=== PATIENT | female | born 1970 | race Hispanic/Latino ===

== ENCOUNTER 2017-05-25 08:31 | Emergency (ER) | payer SELFPAY | END 2017-05-25 09:38 | disposition home or self-care (01) | LOC: ERS 08:31 | DX: K02.9 Dental caries, unspecified (principal); E78.5 Hyperlipidemia, unspecified; E11.9 Type 2 diabetes mellitus without complications; F31.9 Bipolar disorder, unspecified; Z79.4 Long term (current) use of insulin; Z79.899 Other long term (current) drug therapy | CPT/HCPCS: 99282 ==

== ENCOUNTER 2017-06-19 13:04 | Emergency (ER) | payer SELFPAY | END 2017-06-19 14:40 | disposition home or self-care (01) | LOC: ERS 13:04 | DX: K04.7 Periapical abscess without sinus (principal); K02.9 Dental caries, unspecified; E11.9 Type 2 diabetes mellitus without complications; E78.5 Hyperlipidemia, unspecified; I10 Essential (primary) hypertension; F31.9 Bipolar disorder, unspecified; Z79.4 Long term (current) use of insulin; Z79.2 Long term (current) use of antibiotics; Z79.899 Other long term (current) drug therapy | CPT/HCPCS: 99283 ==

== ENCOUNTER 2018-10-03 13:33 | Observation (INO) | payer MEDICAID, SELFPAY ==
[2018-10-03 14:26] LABS: #Basophils 0.1 thou/uL (0.0-0.2); #Eosinphils 0.3 thou/uL (0.0-0.7); #Lymphocytes 2.4 thou/uL (1.20-3.40); #Monocytes 0.4 thou/uL (0.11-0.59); #Neutrophils 4.4 thou/uL (1.40-6.50); %Basophils 1.1 % (0.0-1.0); %Eosinophils 4.5 % (0.0-10.0); %Lymphocytes 31.1 % (21.0-51.0); %Monocytes 5.4 % (0.0-10.0); Hemoglobin 13.9 g/dL (12.0-16.0); Mean Corpuscular HGB CONC 32.2 g/dL (32.0-36.0); Mean Corpuscular Hemoglobin 28.9 pg (27.0-31.0); Mean Corpuscular Volume 89.8 fL (78.0-98.0); Mean Platelet Volume 6.6 fL (7.4-10.4); Platelet Count 421 thou/uL (130-400); RBC Distribution Width 12.7 % (11.5-14.5); Red Blood Cell (RBC) Count 4.82 mill/uL (4.20-5.40); White Blood Cell (WBC) Count 7.6 thou/uL (4.8-10.8)
[2018-10-03 14:52] LABS: Acetaminophen Less than 6.0 mcg/mL (10.0-30.0); Alcohol Less than 10 mg/dL (Less than 10); Salicylate Less than 8.0 mg/dL (15.0-30.0)
[2018-10-03 14:53] LABS: ALT (SGPT) 26 U/L (8-55); AST (SGOT) 21 U/L (5-34); Albumin 4.4 g/dL (3.5-5.0); Alkaline Phosphatase 58 U/L (40-150); Anion Gap 13 mmol/L (10-20); BUN (Urea Nitrogen) 8 mg/dL (7.0-18.7); Bilirubin, Total 0.2 mg/dL (0.2-1.2); CK (CPK) 53 U/L (29-168); Calc. Creatinine Clearance 0 mL/min (70-130); Calcium 10.5 mg/dL (7.8-10.44); Carbon Dioxide 25 mmol/L (22-29); Chloride 103 mmol/L (98-107); Estimated GFR-MDRD 47; Globulin 2.8 g/dL (2.4-3.5); Glucose 187 mg/dL (70-105); Protein, Total 7.2 g/dL (6.0-8.3); Sodium 137 mmol/L (136-145)
[2018-10-03 15:28] LABS: Bilirubin Negative (Negative); Blood, Urine Large (Negative); Clarity CLOUDY (Clear); Glucose, Urine (Dipstick) Negative (Negative); Leukocyte Trace (Negative); Nitrite Negative (Negative); Protein, Urine (Dipstick) 30 mg/dL (Neg-Trace); Specific Gravity, Urine 1.015 (1.002-1.036); Urobilinogen 0.2 mg/dL (0.2-1.0)
[2018-10-03 15:31] LABS: Bacteria/HPF None Seen HPF (None Seen); Hyaline Casts/LPF 0-3 HYALINE CAST LPF (0-3 Hyaline); Pathc Cast-AUWi Flag 0.33 (0-2.49); RBC/HPF GREATER THAN 50-TNTC HPF (0-3); Squamous Epithelial 0-3 HPF (0-3); WBC/HPF 0-3 HPF (0-3)
[2018-10-03 15:37] LABS: Amphetamine Not Detected (NotDetected); Barbiturates Screen Not Detected (NotDetected); Benzodiazepine Screen Not Detected (NotDetected); Cocaine Metabolite Screen Not Detected (NotDetected); Medtox Control Line Valid? VALID (VALID); Medtox Reader # READER 4; Methadone Not Detected (NotDetected); Methamphetamine Not Detected (NotDetected); Opiate Screen Not Detected (NotDetected); Oxycodone Screen Not Detected (NotDetected); Phencyclidine (PCP) Not Detected (NotDetected); THC/Cannabinoid Screen Not Detected (NotDetected); Tricyclic Screen Detected (NotDetected)
[2018-10-03] MEDS ORDERED: Nitroglycerin 2% Ointment 1 INCH/1 GM Packet ONE (16:42)
[2018-10-03] MEDS ORDERED: Ondansetron PF 4 MG/2 ML Vial IVP PRN (17:52)
[2018-10-03] MEDS ORDERED: Acetaminophen 325 MG TAB PO PRN (17:52)
[2018-10-03 21:24] VITALS: BMI 44.7
--- NOTE | 2018-10-04 01:48 | HP ---
CHIEF COMPLAINT: Accidental medication overdose. HISTORY OF PRESENT ILLNESS: The patient is a pleasant 48-year-old female with past medical history significant for type 2 diabetes mellitus diagnosed 10 years ago, hypertension, hyperlipidemia, and anxiety and depression, who presented to the ER this afternoon after accidentally taking a double dose of her morning medications. The patient states that she woke up very early this morning and did indeed take her Tuesday a.m. medications that were in her pill case. Sometime later in the morning, her son was taking his morning medications, and she looked in her pill case, and saw that the morning Tuesday medications had not been taken and she just assumed that it was Tuesday morning and took them again. She called her primary care physician, who told her to present to the ER for further workup and treatment. Essentially, the patient doubled her morning dose of metformin, glyburide, Wellbutrin, Cymbalta, metoprolol. Essentially, she took 1000 mg of metformin, 10 mg of glyburide, 900 mg of Wellbutrin, 240 mg of Cymbalta, and 100 mg of metoprolol. On arrival to the ER, initial workup shows hemoglobin of 13.9, hematocrit 43.3, platelet count is 421. Sodium 137, potassium 4.0, chloride 103, BUN 8, creatinine 1.22. Glucose has been 187, 273, and 117 respectively. Her liver function tests are within normal limits. Her UA does show positive for blood, but is negative for leukocyte esterase or bacteria. Her EKG shows sinus rhythm with a first-degree AV block, ventricular rate of 66 beats per minute, and ST depression and T-wave inversions in the lateral leads. Overall, the patient does not have any specific physical complaints. She denies chest pain or shortness of breath. She denies dizziness. She denies confusion. Poison Control was called and did recommend admission for 24-hour observation, with q.1 hour Accu-Cheks. ALLERGIES: TRAZODONE. HOME MEDICATIONS: 1. Metformin 500 mg b.i.d. 2. Glyburide 5 mg b.i.d. 3. Wellbutrin 450 mg q.a.m. The patient actually takes a 300 mg pill and 150 mg pill for a total of 450 mg. 4. Cymbalta 60 mg two pills p.o. q.a.m. 5. Metoprolol 50 mg b.i.d. 6. Levemir 35 units b.i.d. 7. Pravastatin 40 mg q.h.s. 8. Seroquel 250 mg q.h.s. 9. [place] 900 mg QHS PAST MEDICAL AND SURGICAL HISTORY: 1. Type 2 diabetes mellitus. 2. Hypertension. 3. Hyperlipidemia. 4. Anxiety and depression. 5. History of carpal tunnel release. 6. D and C in 2001. 7. History of laparoscopic endometriosis procedure. FAMILY HISTORY: Positive for TIA and NV in her father. Mother has hypertension and diabetes. SOCIAL HISTORY: The patient does not smoke. She does not use alcohol. She has no history of illicit drug use. She works in [employer]. She has 3 children, ages of 23, 20, and 19. CODE STATUS: The patient is a full code and this was discussed with the patient at length. REVIEW OF SYSTEMS: CONSTITUTIONAL: Negative for fever, chills, and weight loss. HEENT: Eyes, negative for discharge, injury, or pain. ENT, negative for cough, nasal drainage, or ear pain. NECK: Negative for swelling or pain. CARDIOVASCULAR: Negative for chest pain, shortness of breath, palpitations, or edema. RESPIRATORY: Negative for shortness of breath, cough, wheezing, and pleuritic chest pain. ABDOMEN/GI: Negative for abdominal pain, nausea, vomiting, diarrhea, or constipation. BACK: Negative for injury or pain. SKIN: Negative for any rash or discoloration. NEUROLOGIC: Negative for any altered mental status or dizziness. PHYSICAL EXAMINATION: CONSTITUTIONAL: The patient is awake, alert, and nontoxic appearing. She is conversive, alert and oriented x3. HEAD AND FACE: Normocephalic, atraumatic. Eyes, extraocular movements intact. Normal conjunctiva. ENT, nares patent. Mucous membranes moist. RESPIRATORY: Regular respiratory rate and pattern, clear to auscultation bilaterally. No rales, rhonchi, or wheezes noted. ABDOMEN/GI: Soft, nontender. Positive bowel sounds. Obese. No guarding or rebound. SKIN: Warm, dry, normal turgor. No rashes or lesions. CARDIOVASCULAR: S1 and S2. Regular rate and rhythm. No appreciable murmurs, rubs, or gallops. NEUROLOGIC: Nonfocal. Cranial nerves 2 through 12 intact. LABORATORY DATA: Hemoglobin 13.9, hematocrit 43.3, MCV 89.8, MCH 28.9, platelet count is 421. Sodium 131, creatinine 1.22, estimated GFR 47, glucose 187, calcium 10.5, AST 21, ALT 26, alkaline phosphatase 58. EKG as outlined in the HPI shows sinus rhythm with evidence of lateral ischemia. ASSESSMENT: 1. Accidental overdose of Cymbalta, Wellbutrin, glyburide, metformin, and beta brii, the patient is currently asymptomatic and hemodynamically stable. 2. Type 2 diabetes mellitus, diagnosed 10 years ago. 3. Hypertension. 4. Hyperlipidemia. 5. Anxiety and depression. 6. Abnormal EKG with lateral ischemia. 7. Elevated creatinine. PLAN: Per Poison Control, admit the patient for 24-hour observation. We will perform q.1 hour Accu-Cheks and monitor her blood glucose closely. We will perform EKG q.4 hours to monitor for prolonged QT in the setting of multiple medications without particular side effect. We will repeat her labs in the morning. Continue telemetry monitoring regarding her abnormal EKG. The patient does have numerous risk factors for coronary artery disease and may benefit from outpatient cardiology workup and stress test. Care discussed with Dr. Penny who agrees with the plan. Job ID: [id number] MTDD
[2018-10-04 05:51] LABS: ALT (SGPT) 20 U/L (8-55); AST (SGOT) 15 U/L (5-34); Albumin 3.7 g/dL (3.5-5.0); Alkaline Phosphatase 46 U/L (40-150); Anion Gap 12 mmol/L (10-20); BUN (Urea Nitrogen) 9 mg/dL (7.0-18.7); Bilirubin, Total 0.4 mg/dL (0.2-1.2); Calc. Creatinine Clearance 140 mL/min (70-130); Calcium 9.5 mg/dL (7.8-10.44); Carbon Dioxide 23 mmol/L (22-29); Chloride 106 mmol/L (98-107); Estimated GFR-MDRD 64; Globulin 2.1 g/dL (2.4-3.5); Glucose 114 mg/dL (70-105); Potassium 3.5 mmol/L (3.5-5.1); Protein, Total 5.8 g/dL (6.0-8.3); Sodium 137 mmol/L (136-145)
[2018-10-04 12:14] VITALS: BP 111/79; TEMP 98
--- NOTE | 2018-10-04 17:13 | DIS ---
DATE OF ADMISSION: 10/03/2018 DATE OF DISCHARGE: 10/04/2018 ALLERGIES: TRAZODONE. CHIEF COMPLAINT: Accidental overdose. FINAL DIAGNOSES: 1. Accidental overdose of Cymbalta, Wellbutrin, glyburide, metformin, and beta-brii, resolved. 2. Type 2 diabetes mellitus. 3. Hypertension. 4. Hyperlipidemia. 5. Anxiety and depression. 6. Abnormal EKG with lateral ischemia. PROCEDURES PERFORMED: None. LABORATORY RESULTS: Sodium 137, potassium 3.5, chloride 106, BUN 9, creatinine 0.94. Serial Accu-Chek glucose 117, 120, 114, and 120. Liver function tests within normal limits. CONSULTANTS: None. HOSPITAL COURSE: The patient is a pleasant 48-year-old female with past medical historysignificant for type 2 diabetes, hypertension, hyperlipidemia, anxiety, and depression, who presented to the ER yesterday afternoon after accidentally taking a double dose of her morning medications. The patient states that she had woken up extremely early yesterday morning and took her morning medications as usual, however, sometime later in the morning, she was in the kitchen with her son who was taking his medications, lifting her pill box, and again took her next day's dose of morning medications. Essentially, she took a 1000 mg of metformin 10 mg of glyburide, 900 mg of Wellbutrin, 240 mg of Cymbalta, and 100 mg of metoprolol. She called her primary care doctor who advised her to go to the ER for further workup and treatment. On arrival to the ER, the patient was awake and alert. She denied any dizziness or lethargy. Poison Control was called, who recommended admission for 24-hour observation. The patient was admitted for hourly Accu-Cheks. Her blood sugar has remained stable. Serial EKGs did show QTc within normal limits. Telemetry monitoring overnight showed no bradycardia, heart rate remained in the 60s throughout the night. This morning, the patient feels well. She denies any chest pain, shortness of breath, abdominal pain or discomfort, nausea or vomiting. She has ambulated around the room without issue. She has no complaints to me this morning. PHYSICAL EXAMINATION: VITAL SIGNS: Blood pressure 111/79, temperature 98, pulse 64, respirations 16, and O2 saturation 95% on room air. GENERAL: The patient is a moderately obese female, in no acute distress, awake and alert. HEENT: Atraumatic and normocephalic. Eye movements intact. Mucous membranes moist. NECK: Supple. RESPIRATORY: Regular respiratory rate and pattern, clear to auscultation bilaterally. No rhonchi, wheeze, or rales. CARDIOVASCULAR: Normal S1 and S2. No appreciable murmurs, rubs, or gallops. GI: Soft, nontender. Positive bowel sounds. PERIPHERAL VASCULAR: No lower extremity edema. +2 DP pulses bilaterally. NEUROLOGIC: Cranial nerves 2 through 12 grossly intact. No focal deficits. SKIN: Normal, dry, no rashes. CONDITION AT DISCHARGE: Stable. DISCHARGE MEDICATIONS: 1. Bupropion 300 mg tablet extended release 450 mg p.o. q.a.m. 2. Cymbalta 60 mg capsule, 120 mg p.o. daily. 3. Glyburide 5 mg tablet 1 tab p.o. b.i.d. 4. [place] 300 mg tablet, 900 mg p.o. at bedtime. 5. Metformin 500 mg tablet 1 tab p.o. b.i.d. 6. Metoprolol tartrate 50 mg tab 1 tab p.o. b.i.d. 7. Pravastatin 40 mg tab 1 tab p.o. at bedtime. 8. Quetiapine 200 mg tab 1 tab p.o. at bedtime. DISCHARGE DISPOSITION: Home. PLAN: I have advised the patient that she can restart taking her morning medications tomorrow given the half-life of Wellbutrin at 21 hours. She may take her evening medications as scheduled. The patient was noted to have lateral ischemia on her EKGs. Given her risk factors of type 2 diabetes mellitus, hypertension, hyperlipidemia, and family history of coronary artery disease, I have advised the patient to follow up as an outpatient with Cardiology for possible nuclear stress test. As mentioned, the patient has remained hemodynamically stable. She feels well, and we have counseled her at length on the importance of safe medication administration. Plan discussed with Dr. Penny and he agrees. Job ID: [id number]
--- NOTE | 2018-10-04 18:39 | EKG ---
Test Reason : ROUTINE Blood Pressure : / mmHG Vent. Rate : 064 BPM Atrial Rate : 064 BPM P-R Int : 204 ms QRS Dur : 092 ms QT Int : 416 ms P-R-T Axes : 041 -21 114 degrees QTc Int : 429 ms Normal sinus rhythm T wave abnormality, consider lateral ischemia Abnormal ECG When compared with ECG of 03-OCT-2018 14:26, (Unconfirmed) T wave inversion less evident in Anterolateral leads Confirmed by DR. Celia DUKE ([id number]) on 10/04/2018 6:38:57 PM Referred By: Confirmed By:DR. Celia DUKE
--- NOTE | 2018-10-04 18:44 | EKG ---
Test Reason : Blood Pressure : / mmHG Vent. Rate : 061 BPM Atrial Rate : 061 BPM P-R Int : 206 ms QRS Dur : 096 ms QT Int : 446 ms P-R-T Axes : 045 -05 130 degrees QTc Int : 448 ms Normal sinus rhythm T wave abnormality, consider anterolateral ischemia Abnormal ECG When compared with ECG of 03-OCT-2018 14:26, (Unconfirmed) No significant change was found Confirmed by DR. Celia DUKE ([id number]) on 10/04/2018 6:43:52 PM Referred By: SERINA Confirmed By:DR. Celia DUKE
--- NOTE | 2018-10-07 12:02 | EKG ---
Test Reason : OVERDOSE Blood Pressure : / mmHG Vent. Rate : 066 BPM Atrial Rate : 066 BPM P-R Int : 210 ms QRS Dur : 092 ms QT Int : 404 ms P-R-T Axes : 048 -19 107 degrees QTc Int : 423 ms Sinus rhythm with 1st degree A-V block T wave abnormality, consider lateral ischemia Abnormal ECG Confirmed by MAGED HOWARD DO ([id number]), acquisitions editor SHAILA FUNEZ ([id number]) on 10/07/2018 12:02:32 PM Referred By: LEE Confirmed By:MAGED HOWARD DO
== END 2018-10-04 14:40 | disposition home or self-care (01) ==
LOC: ERS 13:33 → ERHOLD 15:30 → 2SW 20:12
PROVIDERS: ADMIT Internal Medicine; ATTEND Internal Medicine
DX: T43.211A Poisoning by selective serotonin and norepinephrine reuptake inhibitors, accidental (unintentional), initial encounter (principal); T43.291A Poisoning by other antidepressants, accidental (unintentional), initial encounter; T38.3X1A Poisoning by insulin and oral hypoglycemic [antidiabetic] drugs, accidental (unintentional), initial encounter; T44.7X1A Poisoning by beta-adrenoreceptor antagonists, accidental (unintentional), initial encounter; I10 Essential (primary) hypertension; E11.9 Type 2 diabetes mellitus without complications; F41.9 Anxiety disorder, unspecified; F32.9 Major depressive disorder, single episode, unspecified; R94.31 Abnormal electrocardiogram [ECG] [EKG]; E78.5 Hyperlipidemia, unspecified; Z88.8 Allergy status to other drugs, medicaments and biological substances; Z79.84 Long term (current) use of oral hypoglycemic drugs; Z79.4 Long term (current) use of insulin; Z79.899 Other long term (current) drug therapy; Z98.890 Other specified postprocedural states
CPT/HCPCS: 36415; 36416; 80053; 80306; 80307; 81003; 81015; 82550; 85025; 93005; 93010; G0378

== ENCOUNTER 2021-07-23 17:10 | Emergency (ER) | payer SELFPAY ==
[2021-07-23 18:17] LABS: #Basophils 0.1 thou/uL (0.0-0.2); #Eosinphils 0.4 thou/uL (0.0-0.7); #Lymphocytes 2.7 thou/uL (1.20-3.40); #Monocytes 0.5 thou/uL (0.11-0.59); #Neutrophils 5.6 thou/uL (1.40-6.50); %Basophils 0.8 % (0.0-1.0); %Eosinophils 4.5 % (0.0-10.0); %Lymphocytes 28.8 % (21.0-51.0); %Monocytes 5.6 % (0.0-10.0); %Neutrophils 60.3 % (42.0-75.0); Hemoglobin 14.5 g/dL (12.0-16.0); Mean Corpuscular HGB CONC 33.6 g/dL (32.0-36.0); Mean Corpuscular Hemoglobin 30.8 pg (27.0-31.0); Mean Corpuscular Volume 91.7 fL (78.0-98.0); Mean Platelet Volume 6.6 fL (7.4-10.4); Platelet Count 472 thou/uL (130-400); RBC Distribution Width 12.5 % (11.5-14.5); Red Blood Cell (RBC) Count 4.69 mill/uL (4.20-5.40); White Blood Cell (WBC) Count 9.3 thou/uL (4.8-10.8)
[2021-07-23 18:27] LABS: BHCG - Serum Negative (NEGATIVE); Pregs Control Background? CLEAR/WHITE (CLR/WHITE); Pregs Control Bar Appear? YES (CONTROL BAR)
[2021-07-23 18:30] LABS: Acetaminophen Less than 6.0 mcg/mL (10.0-30.0); Alcohol Less than 10 mg/dL (Less than 10); Salicylate Less than 8.0 mg/dL (15.0-30.0)
[2021-07-23 18:31] LABS: ALT (SGPT) 12 U/L (8-55); AST (SGOT) 12 U/L (5-34); Albumin 3.8 g/dL (3.5-5.0); Alkaline Phosphatase 55 U/L (40-110); Anion Gap 12 mmol/L (10-20); BUN (Urea Nitrogen) 13 mg/dL (7.0-18.7); Bilirubin, Total 0.3 mg/dL (0.2-1.2); Calc. Creatinine Clearance 0 mL/min (70-130); Calcium 10.1 mg/dL (7.8-10.44); Carbon Dioxide 24 mmol/L (22-29); Chloride 101 mmol/L (98-107); Globulin 3.1 g/dL (2.4-3.5); Glucose 391 mg/dL (70-105); Potassium 4.3 mmol/L (3.5-5.1); Protein, Total 6.9 g/dL (6.0-8.3); Sodium 133 mmol/L (136-145)
[2021-07-23 19:01] LABS: Bacteria/HPF None Seen HPF (None Seen); Bilirubin Negative (Negative); Blood, Urine Negative (Negative); Clarity Clear (Clear); Glucose, Urine (Dipstick) Greater than 1000 mg/dL (Negative); Ketone, Urine Negative (Negative); Leukocyte 250 Leu/uL (Negative); Nitrite Negative (Negative); Protein, Urine (Dipstick) Negative (Neg-Trace); RBC/HPF 0-3 HPF (0-3); Specific Gravity, Urine 1.031 (1.002-1.036); Squamous Epithelial 0-3 HPF (0-3); Urobilinogen Normal mg/dL (Less than 2); pH, Urine 5.5 (5.0-9.0)
[2021-07-23 19:07] LABS: Amphetamine Not Detected (NotDetected); Barbiturates Screen Not Detected (NotDetected); Benzodiazepine Screen Not Detected (NotDetected); Cocaine Metabolite Screen Not Detected (NotDetected); Methadone Not Detected (NotDetected); Methamphetamine Not Detected (NotDetected); Opiate Screen Not Detected (NotDetected); Oxycodone Screen Not Detected (NotDetected); Phencyclidine (PCP) Not Detected (NotDetected); THC/Cannabinoid Screen Not Detected (NotDetected); Tricyclic Screen Not Detected (NotDetected)
[2021-07-23] MEDS ORDERED: Diazepam 5 MG TAB ONE (19:33)
== END 2021-07-23 21:30 | disposition home or self-care (01) ==
LOC: ERS 17:10
DX: F43.22 Adjustment disorder with anxiety (principal); E11.9 Type 2 diabetes mellitus without complications; E78.5 Hyperlipidemia, unspecified; E78.00 Pure hypercholesterolemia, unspecified; I10 Essential (primary) hypertension; Z79.899 Other long term (current) drug therapy
CPT/HCPCS: 36415; 80053; 80306; 80307; 81003; 81015; 84443; 84703; 85025; 93005

== ENCOUNTER 2021-09-27 10:57 | Emergency (ER) | payer OTHER ==
[2021-09-27] MEDS ORDERED: Xylocaine 1% w/ Epi 1:100K 10 ML VIAL ONE (11:45)
== END 2021-09-27 12:52 | disposition home or self-care (01) ==
LOC: ERS 10:57
DX: L02.31 Cutaneous abscess of buttock (principal); I10 Essential (primary) hypertension; E11.9 Type 2 diabetes mellitus without complications; E78.5 Hyperlipidemia, unspecified; E78.00 Pure hypercholesterolemia, unspecified; Z79.4 Long term (current) use of insulin; Z79.899 Other long term (current) drug therapy
CPT/HCPCS: 36416; 99283

== ENCOUNTER 2021-09-28 18:19 | Emergency (ER) | payer OTHER | END 2021-09-28 19:15 | disposition home or self-care (01) | LOC: ERS 18:19 | DX: L02.31 Cutaneous abscess of buttock (principal); E11.9 Type 2 diabetes mellitus without complications; I10 Essential (primary) hypertension; E78.5 Hyperlipidemia, unspecified; E78.00 Pure hypercholesterolemia, unspecified | CPT/HCPCS: 99283 ==

== ENCOUNTER 2021-10-28 17:44 | Observation (INO) | payer OTHER, SELFPAY ==
[~2021-10-28 17:44] MED LIST: Iopamidol-370 76% 500 ML 1 ML ONE
[2021-10-28 18:11] LABS: #Basophils 0.1 thou/uL (0.0-0.2); #Eosinphils 0.4 thou/uL (0.0-0.7); #Lymphocytes 3.1 thou/uL (1.20-3.40); #Monocytes 0.6 thou/uL (0.11-0.59); #Neutrophils 5.8 thou/uL (1.40-6.50); %Basophils 0.7 % (0.0-1.0); %Eosinophils 4.3 % (0.0-10.0); %Lymphocytes 31.2 % (21.0-51.0); %Monocytes 6.4 % (0.0-10.0); %Neutrophils 57.5 % (42.0-75.0); Hemoglobin 14.2 g/dL (12.0-16.0); Mean Corpuscular HGB CONC 31.8 g/dL (32.0-36.0); Mean Corpuscular Hemoglobin 29.1 pg (27.0-31.0); Mean Corpuscular Volume 91.5 fL (78.0-98.0); Mean Platelet Volume 6.7 fL (7.4-10.4); Platelet Count 512 thou/uL (130-400); Red Blood Cell (RBC) Count 4.88 mill/uL (4.20-5.40)
[2021-10-28] MEDS ORDERED: Aspirin 325 MG TAB ONE (18:20)
[2021-10-28 18:32] LABS: ALT (SGPT) 14 U/L (8-55); AST (SGOT) 19 U/L (5-34); Albumin 4.1 g/dL (3.5-5.0); Alkaline Phosphatase 57 U/L (40-110); Anion Gap 16 mmol/L (10-20); BUN (Urea Nitrogen) 15 mg/dL (7.0-18.7); Bilirubin, Total 0.5 mg/dL (0.2-1.2); Calc. Creatinine Clearance 0 mL/min (70-130); Calcium 9.8 mg/dL (7.8-10.44); Carbon Dioxide 17 mmol/L (22-29); Chloride 105 mmol/L (98-107); Globulin 2.8 g/dL (2.4-3.5); Glucose 147 mg/dL (70-105); Magnesium 1.8 mg/dL (1.6-2.6); Potassium 4.2 mmol/L (3.5-5.1); Protein, Total 6.9 g/dL (6.0-8.3); Sodium 134 mmol/L (136-145)
[2021-10-28 18:35] LABS: BHCG - Serum Negative (NEGATIVE); Pregs Control Background? CLEAR/WHITE (CLR/WHITE); Pregs Control Bar Appear? YES (CONTROL BAR)
[2021-10-28 21:40] LABS: Troponin I Less than 0.010 ng/mL (< 0.028)
[2021-10-28] MEDS ORDERED: Sodium Chloride 0.9% 1,000 ML IV SCH (23:15)
[2021-10-28 23:36] VITALS: BMI 47.4
[2021-10-29 01:12] LABS: Troponin I Less than 0.010 ng/mL (< 0.028)
[2021-10-29] MEDS ORDERED: Acetaminophen 325 MG TAB PO PRN (01:41)
[2021-10-29] MEDS ORDERED: Ondansetron PF 4 MG/2 ML Vial IVP PRN (01:41)
[2021-10-29] MEDS ORDERED: Dextrose 50% Abboject 50 ML SYRINGE SLOW IVP PRN (01:43)
[2021-10-29] MEDS ORDERED: HumaLOG 300 UNITS/3 ML VIAL SC PRN ×2 (01:43)
[2021-10-29] MEDS ORDERED: Dextrose 5% in Water 1,000 ML IV PRN (01:43)
[2021-10-29] MEDS: Sodium Chloride 0.9% 1,000 ML IV SCH ×3 (04:54→10:41)
[2021-10-29 06:24] LABS: #Eosinphils 0.2 thou/uL (0.0-0.7); #Lymphocytes 2.4 thou/uL (1.20-3.40); #Monocytes 0.3 thou/uL (0.11-0.59); #Neutrophils 3.7 thou/uL (1.40-6.50); %Basophils 0.4 % (0.0-1.0); %Eosinophils 3.5 % (0.0-10.0); %Neutrophils 55.1 % (42.0-75.0); Hemoglobin 12.5 g/dL (12.0-16.0); Mean Corpuscular Hemoglobin 28.9 pg (27.0-31.0); Mean Corpuscular Volume 93.2 fL (78.0-98.0); Mean Platelet Volume 6.6 fL (7.4-10.4); Platelet Count 392 thou/uL (130-400); Red Blood Cell (RBC) Count 4.31 mill/uL (4.20-5.40); White Blood Cell (WBC) Count 6.7 thou/uL (4.8-10.8)
[2021-10-29 06:43] LABS: Anion Gap 11 mmol/L (10-20); BUN (Urea Nitrogen) 11 mg/dL (7.0-18.7); Calc. Creatinine Clearance 142 mL/min (70-130); Calcium 8.6 mg/dL (7.8-10.44); Carbon Dioxide 18 mmol/L (22-29); Chloride 108 mmol/L (98-107); Glucose 152 mg/dL (70-105); Potassium 4.2 mmol/L (3.5-5.1); Sodium 133 mmol/L (136-145)
[2021-10-29] MEDS ORDERED: Heparin 5,000 UNITS/ML VIAL SC SCH (09:00)
[2021-10-29 10:51] LABS: SARS-CoV-2 PCR by NAA Not Detected (NotDetected)
[2021-10-29] MEDS ORDERED: Meloxicam 15 MG TAB PO SCH (11:30)
[2021-10-29 11:54] VITALS: TEMP 97.9
[2021-10-29 13:10] VITALS: BP 124/58
== END 2021-10-29 15:20 | disposition home or self-care (01) ==
LOC: ERS 17:44 → IMCU/EMU 20:49 → 2SW 10-29 10:14
PROVIDERS: ADMIT Internal Medicine; ATTEND Internal Medicine
DX: R55 Syncope and collapse (principal); R42 Dizziness and giddiness; N17.9 Acute kidney failure, unspecified; S09.90XA Unspecified injury of head, initial encounter; I10 Essential (primary) hypertension; E11.40 Type 2 diabetes mellitus with diabetic neuropathy, unspecified; E78.5 Hyperlipidemia, unspecified; L71.9 Rosacea, unspecified; Z20.822 Contact with and (suspected) exposure to COVID-19; Z79.4 Long term (current) use of insulin; Z79.899 Other long term (current) drug therapy; W19.XXXA Unspecified fall, initial encounter
CPT/HCPCS: 36415; 36416; 70450; 70498; 71045; 80048; 80053; 80178; 83735; 84484; 84703; 85025; 93005; 93306; G0378; J1644; J1815; J7050; Q9967; U0003; U0005

== ENCOUNTER 2021-11-22 | Emergency (ER) | payer SELFPAY ==
[2021-11-22] MEDS ORDERED: Ketorolac Tromethamine 30 MG/ML VIAL ONE (01:32)
[2021-11-22] MEDS ORDERED: Morphine 4 MG/ML VIAL ONE ×2 (01:32→04:10)
[2021-11-22 01:43] LABS: Bacteria/HPF None Seen HPF (None Seen); Bilirubin Negative (Negative); Blood, Urine Negative (Negative); Clarity Turbid (Clear); Glucose, Urine (Dipstick) 300 mg/dL (Negative); Ketone, Urine Trace mg/dL (Negative); Leukocyte Negative Leu/uL (Negative); Mucous/LPF 2+ LPF (<2+); Nitrite Negative (Negative); Protein, Urine (Dipstick) 50 mg/dL (Neg-Trace); RBC/HPF 0-3 HPF (0-3); Specific Gravity, Urine 1.028 (1.002-1.036); Urobilinogen 3 mg/dL (Less than 2); pH, Urine 5.5 (5.0-9.0)
[2021-11-22] MEDS ORDERED: Ondansetron PF 4 MG/2 ML Vial ONE (01:45)
[2021-11-22 02:09] LABS: #Basophils 0.1 thou/uL (0.0-0.2); #Eosinphils 0.3 thou/uL (0.0-0.7); #Lymphocytes 2.9 thou/uL (1.20-3.40); #Monocytes 0.5 thou/uL (0.11-0.59); #Neutrophils 5.1 thou/uL (1.40-6.50); %Basophils 0.7 % (0.0-1.0); %Eosinophils 3.8 % (0.0-10.0); %Lymphocytes 32.9 % (21.0-51.0); %Monocytes 5.8 % (0.0-10.0); %Neutrophils 56.8 % (42.0-75.0); Hemoglobin 14.2 g/dL (12.0-16.0); Mean Corpuscular HGB CONC 32.1 g/dL (32.0-36.0); Mean Corpuscular Volume 93.3 fL (78.0-98.0); Mean Platelet Volume 6.3 fL (7.4-10.4); Platelet Count 581 thou/uL (130-400); RBC Distribution Width 13.2 % (11.5-14.5); Red Blood Cell (RBC) Count 4.73 mill/uL (4.20-5.40); White Blood Cell (WBC) Count 8.9 thou/uL (4.8-10.8)
[2021-11-22 02:17] LABS: BHCG - Serum Negative (NEGATIVE); Pregs Control Background? CLEAR/WHITE (CLR/WHITE); Pregs Control Bar Appear? YES (CONTROL BAR)
[2021-11-22 02:32] LABS: ALT (SGPT) 12 U/L (8-55); AST (SGOT) 14 U/L (5-34); Albumin 3.9 g/dL (3.5-5.0); Alkaline Phosphatase 57 U/L (40-110); Anion Gap 11 mmol/L (10-20); BUN (Urea Nitrogen) 9 mg/dL (7.0-18.7); Bilirubin, Total 0.4 mg/dL (0.2-1.2); CRP (Inflammatory) Less than 0.50 mg/dL (= or < 0.5); Calc. Creatinine Clearance 0 mL/min (70-130); Calcium 9.6 mg/dL (7.8-10.44); Carbon Dioxide 25 mmol/L (22-29); Chloride 104 mmol/L (98-107); Globulin 2.7 g/dL (2.4-3.5); Glucose 187 mg/dL (70-105); Potassium 4.2 mmol/L (3.5-5.1); Protein, Total 6.6 g/dL (6.0-8.3); Sodium 136 mmol/L (136-145)
[2021-11-22] MEDS ORDERED: Dexamethasone 10 MG/ML VIAL ONE (05:59)
== END 2021-11-22 07:10 | disposition home or self-care (01) ==
LOC: ERS
DX: M51.26 Other intervertebral disc displacement, lumbar region (principal); E11.9 Type 2 diabetes mellitus without complications; E78.5 Hyperlipidemia, unspecified; E78.00 Pure hypercholesterolemia, unspecified; I10 Essential (primary) hypertension; Z79.4 Long term (current) use of insulin; Z79.84 Long term (current) use of oral hypoglycemic drugs; Z79.899 Other long term (current) drug therapy; W19.XXXA Unspecified fall, initial encounter
CPT/HCPCS: 36415; 72148; 74176; 80053; 81003; 81015; 84703; 85025; 86140; 96374; 96375; 96376; J1100; J1885; J2270; J2405

== ENCOUNTER 2021-12-02 21:30 | Observation (INO) | payer SELFPAY ==
[2021-12-02 22:39] LABS: #Eosinphils 0.4 thou/uL (0.0-0.7); #Lymphocytes 3.2 thou/uL (1.20-3.40); #Monocytes 0.4 thou/uL (0.11-0.59); #Neutrophils 4.8 thou/uL (1.40-6.50); %Basophils 0.5 % (0.0-1.0); %Eosinophils 4.5 % (0.0-10.0); %Lymphocytes 36.1 % (21.0-51.0); %Neutrophils 53.9 % (42.0-75.0); Hemoglobin 11.9 g/dL (12.0-16.0); Mean Corpuscular Hemoglobin 30.4 pg (27.0-31.0); Mean Corpuscular Volume 95.1 fL (78.0-98.0); Mean Platelet Volume 6.1 fL (7.4-10.4); Platelet Count 406 thou/uL (130-400); RBC Distribution Width 13.1 % (11.5-14.5); Red Blood Cell (RBC) Count 3.93 mill/uL (4.20-5.40)
[2021-12-02 23:03] LABS: ALT (SGPT) 11 U/L (8-55); AST (SGOT) 10 U/L (5-34); Albumin 3.2 g/dL (3.5-5.0); Alkaline Phosphatase 43 U/L (40-110); Anion Gap 9 mmol/L (10-20); BUN (Urea Nitrogen) 16 mg/dL (7.0-18.7); Bilirubin, Total 0.3 mg/dL (0.2-1.2); Calc. Creatinine Clearance 0 mL/min (70-130); Calcium 8.9 mg/dL (7.8-10.44); Carbon Dioxide 25 mmol/L (22-29); Chloride 105 mmol/L (98-107); Globulin 1.8 g/dL (2.4-3.5); Glucose 205 mg/dL (70-105); Potassium 4.7 mmol/L (3.5-5.1); Sodium 134 mmol/L (136-145)
[2021-12-02] MEDS ORDERED: Aspirin Chewable 81 MG TAB ONE (23:55)
[2021-12-02] MEDS ORDERED: Fentanyl 100 MCG/2 ML VIAL ONE (23:56)
[2021-12-03 01:44] VITALS: BMI 55.9
[2021-12-03] MEDS ORDERED: Morphine 4 MG/ML VIAL SLOW IVP SCH (02:30)
[2021-12-03 02:34] LABS: Troponin I Less than 0.010 ng/mL (< 0.028)
[2021-12-03 05:22] LABS: Troponin I Less than 0.010 ng/mL (< 0.028)
[2021-12-03] MEDS ORDERED: Acetaminophen 325 MG TAB PO PRN (08:16)
[2021-12-03] MEDS ORDERED: Senokot S 8.6-50 MG TAB PO PRN (08:33)
[2021-12-03] MEDS ORDERED: Bisacodyl 5 MG TAB PO PRN (08:33)
[2021-12-03] MEDS ORDERED: HYDROcodone/Acetaminophen 5/325 mg Tablet PO PRN (08:33)
[2021-12-03] MEDS ORDERED: Dextrose 5% in Water 1,000 ML IV PRN (08:33)
[2021-12-03] MEDS ORDERED: HumaLOG 300 UNITS/3 ML VIAL SC PRN ×2 (08:33)
[2021-12-03] MEDS ORDERED: Dextrose 50% Abboject 50 ML SYRINGE SLOW IVP PRN (08:33)
[2021-12-03] MEDS ORDERED: Ketorolac Tromethamine 30 MG/ML VIAL IVP SCH (08:45)
[2021-12-03] MEDS: DULoxetine 60 MG CAP PO SCH (09:21)
[2021-12-03] MEDS: Lisinopril 5 MG TAB PO SCH (09:21)
[2021-12-03] MEDS: Metoprolol Tartrate 25 MG TAB PO SCH ×2 (09:23→20:35)
[2021-12-03] MEDS: Pioglitazone HCl 45 MG TAB PO SCH (09:34)
[2021-12-03 10:33] LABS: Cardiac Risk 4.5 (Less than 4.5)
[2021-12-03 12:30] LABS: SARS-CoV-2 PCR by NAA Not Detected (NotDetected)
[2021-12-03] MEDS: Ketorolac Tromethamine 30 MG/ML VIAL IVP SCH ×2 (15:07→20:34)
[2021-12-03] MEDS: Insulin Glargine 30 UNITS/0.3 ML VIAL SC SCH (15:08)
[2021-12-03] MEDS ORDERED: GABAPENTIN 600 MG PO SCH (17:00)
[2021-12-03] MEDS: Alogliptin 6.25 MG TAB PO SCH (20:33)
[2021-12-03] MEDS ORDERED: Atorvastatin Calcium 10 MG TAB PO SCH (21:00)
[2021-12-04] MEDS: Ketorolac Tromethamine 30 MG/ML VIAL IVP SCH ×2 (02:40→08:20)
[2021-12-04 04:34] LABS: #Eosinphils 0.3 thou/uL (0.0-0.7); #Lymphocytes 2.7 thou/uL (1.20-3.40); #Monocytes 0.3 thou/uL (0.11-0.59); #Neutrophils 4.7 thou/uL (1.40-6.50); %Basophils 0.5 % (0.0-1.0); %Eosinophils 4.2 % (0.0-10.0); %Monocytes 3.8 % (0.0-10.0); %Neutrophils 58.5 % (42.0-75.0); Hemoglobin 12.7 g/dL (12.0-16.0); Mean Corpuscular HGB CONC 32.1 g/dL (32.0-36.0); Mean Corpuscular Hemoglobin 30.6 pg (27.0-31.0); Mean Corpuscular Volume 95.2 fL (78.0-98.0); Mean Platelet Volume 6.3 fL (7.4-10.4); Platelet Count 359 thou/uL (130-400); RBC Distribution Width 13.2 % (11.5-14.5); Red Blood Cell (RBC) Count 4.16 mill/uL (4.20-5.40); White Blood Cell (WBC) Count 8.1 thou/uL (4.8-10.8)
[2021-12-04 04:57] LABS: Anion Gap 9 mmol/L (10-20); BUN (Urea Nitrogen) 16 mg/dL (7.0-18.7); Carbon Dioxide 25 mmol/L (22-29); Chloride 103 mmol/L (98-107); Potassium 4.4 mmol/L (3.5-5.1); Sodium 133 mmol/L (136-145)
[2021-12-04 04:58] LABS: Calc. Creatinine Clearance 172 mL/min (70-130); Calcium 9.2 mg/dL (7.8-10.44); Glucose 160 mg/dL (70-105)
[2021-12-04 07:21] VITALS: TEMP 97.8
[2021-12-04] MEDS: Lisinopril 5 MG TAB PO SCH (08:20)
[2021-12-04] MEDS: DULoxetine 60 MG CAP PO SCH (08:20)
[2021-12-04] MEDS: Metoprolol Tartrate 25 MG TAB PO SCH (08:20)
[2021-12-04] MEDS: Insulin Glargine 30 UNITS/0.3 ML VIAL SC SCH (08:21)
[2021-12-04] MEDS: Pioglitazone HCl 45 MG TAB PO SCH (08:23)
[2021-12-04] MEDS: Alogliptin 6.25 MG TAB PO SCH (08:24)
[2021-12-04] MEDS ORDERED: Cyclobenzaprine 10 MG TAB PO SCH ×2 (10:45→15:00)
[2021-12-04 11:09] VITALS: BP 124/68
== END 2021-12-04 14:02 | disposition home or self-care (01) ==
LOC: ERS 21:30 → 2SW 12-03 00:14
PROVIDERS: ADMIT Internal Medicine; ATTEND Internal Medicine
DX: M54.50 Low back pain, unspecified (principal); M51.26 Other intervertebral disc displacement, lumbar region; R06.02 Shortness of breath; M47.816 Spondylosis without myelopathy or radiculopathy, lumbar region; I10 Essential (primary) hypertension; E78.5 Hyperlipidemia, unspecified; F31.9 Bipolar disorder, unspecified; E11.42 Type 2 diabetes mellitus with diabetic polyneuropathy; E87.1 Hypo-osmolality and hyponatremia; M48.061 Spinal stenosis, lumbar region without neurogenic claudication; M51.36 Other intervertebral disc degeneration, lumbar region; M48.07 Spinal stenosis, lumbosacral region; E66.01 Morbid (severe) obesity due to excess calories; Z68.43 Body mass index [BMI] 50.0-59.9, adult; Z79.4 Long term (current) use of insulin; Z79.84 Long term (current) use of oral hypoglycemic drugs; Z79.899 Other long term (current) drug therapy; Z88.8 Allergy status to other drugs, medicaments and biological substances; Z20.822 Contact with and (suspected) exposure to COVID-19
CPT/HCPCS: 36415; 36416; 71045; 80048; 80053; 80061; 84443; 84484; 85025; 93005; 96374; 96375; 96376; G0378; J1815; J1885; J2270; J3010; U0003; U0005

== ENCOUNTER 2021-12-08 14:59 | Emergency (ER) | payer SELFPAY ==
[2021-12-08 15:46] LABS: #Eosinphils 0.4 thou/uL (0.0-0.7); #Lymphocytes 2.2 thou/uL (1.20-3.40); #Monocytes 0.5 thou/uL (0.11-0.59); #Neutrophils 6.2 thou/uL (1.40-6.50); %Basophils 0.4 % (0.0-1.0); %Eosinophils 4.2 % (0.0-10.0); %Lymphocytes 23.3 % (21.0-51.0); %Monocytes 5.8 % (0.0-10.0); %Neutrophils 66.2 % (42.0-75.0); Hemoglobin 13.6 g/dL (12.0-16.0); Mean Corpuscular HGB CONC 31.9 g/dL (32.0-36.0); Mean Corpuscular Hemoglobin 30.3 pg (27.0-31.0); Mean Platelet Volume 7.1 fL (7.4-10.4); Platelet Count 442 thou/uL (130-400); RBC Distribution Width 13.6 % (11.5-14.5); Red Blood Cell (RBC) Count 4.49 mill/uL (4.20-5.40); White Blood Cell (WBC) Count 9.3 thou/uL (4.8-10.8)
[2021-12-08 16:10] LABS: ALT (SGPT) 17 U/L (8-55); AST (SGOT) 13 U/L (5-34); Albumin 3.7 g/dL (3.5-5.0); Alkaline Phosphatase 53 U/L (40-110); Anion Gap 13 mmol/L (10-20); BUN (Urea Nitrogen) 13 mg/dL (7.0-18.7); Bilirubin, Total 0.8 mg/dL (0.2-1.2); Calc. Creatinine Clearance 0 mL/min (70-130); Calcium 9.6 mg/dL (7.8-10.44); Carbon Dioxide 21 mmol/L (22-29); Chloride 103 mmol/L (98-107); Globulin 2.8 g/dL (2.4-3.5); Glucose 204 mg/dL (70-105); Magnesium 1.8 mg/dL (1.6-2.6); Potassium 4.6 mmol/L (3.5-5.1); Protein, Total 6.5 g/dL (6.0-8.3); Sodium 132 mmol/L (136-145)
== END 2021-12-08 19:44 | disposition home or self-care (01) ==
LOC: ERS 14:59
DX: E86.0 Dehydration (principal); R53.1 Weakness; E11.9 Type 2 diabetes mellitus without complications; E78.5 Hyperlipidemia, unspecified; E78.00 Pure hypercholesterolemia, unspecified; I10 Essential (primary) hypertension
CPT/HCPCS: 36415; 80053; 83735; 85025; 93005; 96360; 96361

== ENCOUNTER 2022-01-29 08:54 | Emergency (ER) | payer SELFPAY ==
[2022-01-29] MEDS ORDERED: Diazepam 5 MG TAB ONE (10:18)
[2022-01-29] MEDS ORDERED: Ketorolac Tromethamine 30 MG/ML VIAL ONE (10:19)
[2022-01-29 11:01] LABS: Bacteria/HPF Rare-Few HPF (None Seen); Bilirubin Negative (Negative); Blood, Urine Negative (Negative); Clarity Clear (Clear); Glucose, Urine (Dipstick) Normal (Negative); Ketone, Urine Negative (Negative); Leukocyte 250 Leu/uL (Negative); Nitrite Negative (Negative); Protein, Urine (Dipstick) Negative (Neg-Trace); RBC/HPF 0-3 HPF (0-3); Specific Gravity, Urine 1.013 (1.002-1.036); Urobilinogen Normal mg/dL (Less than 2); WBC/HPF 0-3 HPF (0-3); pH, Urine 6.5 (5.0-9.0)
== END 2022-01-29 11:43 | disposition home or self-care (01) ==
LOC: ERS 08:54
DX: M54.50 Low back pain, unspecified (principal); E11.9 Type 2 diabetes mellitus without complications; E78.5 Hyperlipidemia, unspecified; I10 Essential (primary) hypertension
CPT/HCPCS: 81003; 81015; 96372; 99283; J1885

== ENCOUNTER 2022-01-30 17:17 | Emergency (ER) | payer SELFPAY ==
[2022-01-30] MEDS ORDERED: Ketorolac Tromethamine 30 MG/ML VIAL ONE (17:46)
== END 2022-01-30 18:02 | disposition home or self-care (01) ==
LOC: ERS 17:17
DX: S39.012A Strain of muscle, fascia and tendon of lower back, initial encounter (principal); G89.29 Other chronic pain; E11.9 Type 2 diabetes mellitus without complications; E78.5 Hyperlipidemia, unspecified; E78.00 Pure hypercholesterolemia, unspecified; I10 Essential (primary) hypertension; Z79.899 Other long term (current) drug therapy; X58.XXXA Exposure to other specified factors, initial encounter
CPT/HCPCS: 96372; 99283; J1885

== ENCOUNTER 2022-02-26 20:53 | Emergency (ER) | payer SELFPAY ==
[2022-02-26 21:50] LABS: #Basophils 0.1 thou/uL (0.0-0.2); #Eosinphils 0.3 thou/uL (0.0-0.7); #Lymphocytes 1.8 thou/uL (1.20-3.40); #Monocytes 0.4 thou/uL (0.11-0.59); #Neutrophils 4.3 thou/uL (1.40-6.50); %Basophils 1.1 % (0.0-1.0); %Eosinophils 4.1 % (0.0-10.0); %Lymphocytes 26.5 % (21.0-51.0); %Monocytes 5.1 % (0.0-10.0); %Neutrophils 63.3 % (42.0-75.0); Hemoglobin 13.6 g/dL (12.0-16.0); Mean Corpuscular HGB CONC 32.8 g/dL (32.0-36.0); Mean Corpuscular Hemoglobin 29.7 pg (27.0-31.0); Mean Corpuscular Volume 90.7 fL (78.0-98.0); Mean Platelet Volume 6.7 fL (7.4-10.4); Platelet Count 373 thou/uL (130-400); RBC Distribution Width 12.6 % (11.5-14.5); Red Blood Cell (RBC) Count 4.58 mill/uL (4.20-5.40); White Blood Cell (WBC) Count 6.8 thou/uL (4.8-10.8)
[2022-02-26] MEDS ORDERED: Mag-Al 1200 mg/1200 mg/30 ML UDCUP ONE (22:05)
[2022-02-26] MEDS ORDERED: Lidocaine Viscous Sol 2% 15 ml UD Cup ONE (22:05)
[2022-02-26 22:13] LABS: ALT (SGPT) 17 U/L (8-55); AST (SGOT) 17 U/L (5-34); Albumin 3.4 g/dL (3.5-5.0); Alkaline Phosphatase 58 U/L (40-110); Anion Gap 11 mmol/L (10-20); BUN (Urea Nitrogen) 6 mg/dL (7.0-18.7); Bilirubin, Total 0.3 mg/dL (0.2-1.2); Calc. Creatinine Clearance 0 mL/min (70-130); Calcium 9.2 mg/dL (7.8-10.44); Carbon Dioxide 24 mmol/L (22-29); Chloride 104 mmol/L (98-107); Estimated GFR 78; Globulin 2.2 g/dL (2.4-3.5); Glucose 286 mg/dL (70-105); Lipase 83 U/L (8-78); Potassium 3.8 mmol/L (3.5-5.1); Protein, Total 5.6 g/dL (6.0-8.3); Sodium 135 mmol/L (136-145)
[2022-02-27 00:38] LABS: Troponin I Less than 0.010 ng/mL (< 0.028)
== END 2022-02-27 01:13 | disposition home or self-care (01) ==
LOC: ERS 20:53
DX: K21.9 Gastro-esophageal reflux disease without esophagitis (principal); E11.9 Type 2 diabetes mellitus without complications; E78.5 Hyperlipidemia, unspecified; E78.00 Pure hypercholesterolemia, unspecified; I10 Essential (primary) hypertension; Z79.899 Other long term (current) drug therapy
CPT/HCPCS: 36415; 71045; 80053; 83690; 84484; 85025; 93005

== ENCOUNTER 2022-03-20 04:28 | Emergency (ER) | payer SELFPAY | END 2022-03-20 05:43 | disposition home or self-care (01) | LOC: ERS 04:28 | DX: N64.4 Mastodynia (principal); E78.00 Pure hypercholesterolemia, unspecified; I10 Essential (primary) hypertension; Z79.899 Other long term (current) drug therapy; E11.9 Type 2 diabetes mellitus without complications | CPT/HCPCS: 99283 ==

== ENCOUNTER 2022-04-12 17:03 | Inpatient (IN) | payer SELFPAY ==
[2022-04-12 18:14] LABS: #Basophils 0.1 thou/uL (0.0-0.2); #Eosinphils 0.3 thou/uL (0.0-0.7); #Lymphocytes 2.3 thou/uL (1.20-3.40); #Monocytes 0.7 thou/uL (0.11-0.59); %Basophils 0.8 % (0.0-1.0); %Eosinophils 2.4 % (0.0-10.0); %Lymphocytes 18.8 % (21.0-51.0); %Monocytes 5.3 % (0.0-10.0); %Neutrophils 72.7 % (42.0-75.0); Hemoglobin 16.6 g/dL (12.0-16.0); Mean Corpuscular HGB CONC 33.2 g/dL (32.0-36.0); Mean Corpuscular Hemoglobin 29.6 pg (27.0-31.0); Mean Corpuscular Volume 89.3 fL (78.0-98.0); Mean Platelet Volume 7.2 fL (7.4-10.4); Platelet Count 458 thou/uL (130-400); Red Blood Cell (RBC) Count 5.61 mill/uL (4.20-5.40); White Blood Cell (WBC) Count 12.4 thou/uL (4.8-10.8)
[2022-04-12 19:00] LABS: ALT (SGPT) 44 U/L (8-55); AST (SGOT) 39 U/L (5-34); Albumin 3.8 g/dL (3.5-5.0); Alkaline Phosphatase 107 U/L (40-110); Anion Gap 17 mmol/L (10-20); BUN (Urea Nitrogen) 17 mg/dL (7.0-18.7); Bilirubin, Total 0.8 mg/dL (0.2-1.2); Calc. Creatinine Clearance 0 mL/min (70-130); Calcium 9.4 mg/dL (7.8-10.44); Carbon Dioxide 18 mmol/L (22-29); Chloride 96 mmol/L (98-107); Estimated GFR 29; Globulin 2.6 g/dL (2.4-3.5); Glucose 611 mg/dL (70-105); Lipase 44 U/L (8-78); Phosphorus 4.8 mg/dL (2.3-4.7); Potassium 5.4 mmol/L (3.5-5.1); Protein, Total 6.4 g/dL (6.0-8.3); Sodium 126 mmol/L (136-145)
[2022-04-12 19:34] LABS: Actual Bicarbonate (HCO3v) 20 mEq/L (22-28); Analyzer IN Cardio ER; Base Excess -6.5 mEq/L (-2.0 to +3.0); Calcium, Ionized (venous) 1.08 mmol/L (1.16-1.32); Chloride (VBG) 98 mmol/L (98-106); Hemoglobin (Hb) 16.3 g/dL (11.7-16.0); Sodium 126.3 mmol/L (133-146)
[2022-04-12] MEDS ORDERED: Insulin Regular 300 UNITS/3 ML VIAL ONE (19:43)
[2022-04-12] MEDS ORDERED: Acetaminophen 500 MG TAB ONE (19:43)
[2022-04-12] MEDS ORDERED: Ketorolac Tromethamine 30 MG/ML VIAL ONE (19:43)
[2022-04-12] MEDS ORDERED: Bisacodyl 10 MG SUPP PR PRN (20:11)
[2022-04-12] MEDS ORDERED: Dextrose 5% in Water 1,000 ML IV PRN (20:11)
[2022-04-12] MEDS ORDERED: Bisacodyl 5 MG TAB PO PRN (20:11)
[2022-04-12] MEDS ORDERED: Dextrose 50% Abboject 50 ML SYRINGE SLOW IVP PRN (20:11)
[2022-04-12] MEDS ORDERED: Ondansetron PF 4 MG/2 ML Vial IVP PRN (20:11)
[2022-04-12] MEDS ORDERED: Acetaminophen 325 MG TAB PO PRN (20:11)
[2022-04-12] MEDS ORDERED: Senokot S 8.6-50 MG TAB PO PRN (20:11)
[2022-04-12 21:52] LABS: Anion Gap 13 mmol/L (10-20); BUN (Urea Nitrogen) 16 mg/dL (7.0-18.7); Calc. Creatinine Clearance 0 mL/min (70-130); Calcium 8.6 mg/dL (7.8-10.44); Carbon Dioxide 17 mmol/L (22-29); Chloride 101 mmol/L (98-107); Estimated GFR 45; Glucose 461 mg/dL (70-105); Potassium 4.4 mmol/L (3.5-5.1); Sodium 127 mmol/L (136-145)
[2022-04-12] MEDS: Sodium Chloride 0.9% 1,000 ML IV SCH (22:04)
[2022-04-12] MEDS: Insulin Glargine 30 UNITS/0.3 ML VIAL SC SCH (22:33)
[2022-04-12] MEDS: HumaLOG 300 UNITS/3 ML VIAL SC PRN (22:42)
[2022-04-12 23:35] VITALS: BMI 49.1
[2022-04-13] MEDS: HumaLOG 300 UNITS/3 ML VIAL SC PRN ×3 (00:10→17:05)
[2022-04-13 01:58] LABS: Anion Gap 13 mmol/L (10-20); BUN (Urea Nitrogen) 18 mg/dL (7.0-18.7); Calc. Creatinine Clearance 105 mL/min (70-130); Calcium 8.5 mg/dL (7.8-10.44); Carbon Dioxide 18 mmol/L (22-29); Chloride 104 mmol/L (98-107); Estimated GFR 50; Glucose 350 mg/dL (70-105); Potassium 3.7 mmol/L (3.5-5.1); Sodium 131 mmol/L (136-145)
[2022-04-13 04:08] LABS: Actual Bicarbonate (HCO3v) 18 mEq/L (22-28); Base Excess -6.5 mEq/L (-2.0 to +3.0); Calcium, Ionized (venous) 1.13 mmol/L (1.16-1.32); Chloride (VBG) 102 mmol/L (98-106); Hemoglobin (Hb) 14.7 g/dL (11.7-16.0); Potassium (VBG) 3.68 mmol/L (3.70-5.30); Sodium 131.4 mmol/L (133-146); pH (venous) 7.34 (7.32-7.43)
[2022-04-13] MEDS: Sodium Chloride 0.9% 1,000 ML IV SCH ×3 (04:52→16:07)
[2022-04-13 05:16] LABS: #Basophils 0.1 thou/uL (0.0-0.2); #Eosinphils 0.3 thou/uL (0.0-0.7); #Lymphocytes 2.2 thou/uL (1.20-3.40); #Monocytes 0.6 thou/uL (0.11-0.59); #Neutrophils 4.5 thou/uL (1.40-6.50); %Basophils 0.9 % (0.0-1.0); %Eosinophils 3.5 % (0.0-10.0); %Lymphocytes 29.1 % (21.0-51.0); %Monocytes 7.3 % (0.0-10.0); %Neutrophils 59.2 % (42.0-75.0); Hemoglobin 13.6 g/dL (12.0-16.0); Mean Corpuscular HGB CONC 32.7 g/dL (32.0-36.0); Mean Corpuscular Hemoglobin 29.3 pg (27.0-31.0); Mean Corpuscular Volume 89.5 fL (78.0-98.0); Platelet Count 347 thou/uL (130-400); RBC Distribution Width 12.8 % (11.5-14.5); Red Blood Cell (RBC) Count 4.66 mill/uL (4.20-5.40); White Blood Cell (WBC) Count 7.6 thou/uL (4.8-10.8)
[2022-04-13 05:27] LABS: ALT (SGPT) 33 U/L (8-55); AST (SGOT) 32 U/L (5-34); Albumin 3.1 g/dL (3.5-5.0); Alkaline Phosphatase 82 U/L (40-110); Anion Gap 13 mmol/L (10-20); BUN (Urea Nitrogen) 17 mg/dL (7.0-18.7); Bilirubin, Direct 0.2 mg/dL (0.1-0.3); Bilirubin, Total 0.7 mg/dL (0.2-1.2); Calc. Creatinine Clearance 125 mL/min (70-130); Calcium 8.6 mg/dL (7.8-10.44); Carbon Dioxide 19 mmol/L (22-29); Cardiac Risk 5.1 (Less than 4.5); Chloride 103 mmol/L (98-107); Cholesterol 149 mg/dl (< 200 Desired); Estimated GFR 61; Glucose 290 mg/dL (70-105); HDL Cholesterol 29 mg/dL (>60 Neg Risk); LDL Cholesterol, Calculated 79 mg/dL; Magnesium 1.5 mg/dL (1.6-2.6); Potassium 3.7 mmol/L (3.5-5.1); Protein, Total 4.8 g/dL (6.0-8.3); Sodium 131 mmol/L (136-145); Triglycerides 206 mg/dL (Less than 150)
[2022-04-13] MEDS ORDERED: GABAPENTIN 600 MG PO SCH (08:00)
[2022-04-13 08:44] LABS: Bilirubin Negative (Negative); Blood, Urine 1+ (Negative); Clarity Clear (Clear); Glucose, Urine (Dipstick) Greater than 1000 mg/dL (Negative); Ketone, Urine Negative (Negative); Leukocyte 500 Leu/uL (Negative); Nitrite Negative (Negative); Protein, Urine (Dipstick) 30 mg/dL (Neg-Trace); Squamous Epithelial 0-3 HPF (0-3); Urobilinogen Normal mg/dL (Less than 2); pH, Urine 5.5 (5.0-9.0)
[2022-04-13 08:48] LABS: Amphetamine Not Detected (NotDetected); Barbiturates Screen Not Detected (NotDetected); Benzodiazepine Screen Not Detected (NotDetected); Cocaine Metabolite Screen Not Detected (NotDetected); Methadone Not Detected (NotDetected); Methamphetamine Not Detected (NotDetected); Opiate Screen Not Detected (NotDetected); Oxycodone Screen Not Detected (NotDetected); Phencyclidine (PCP) Not Detected (NotDetected); THC/Cannabinoid Screen Not Detected (NotDetected); Tricyclic Screen Detected (NotDetected)
[2022-04-13 08:55] LABS: Bacteria/HPF 2+ HPF (None Seen)
[2022-04-13 08:56] LABS: Urine Culture Reflex Yes Yes
[2022-04-13] MEDS ORDERED: Enoxaparin Sodium 40 MG/0.4 ML SYRINGE SC SCH ×2 (09:00→21:00)
[2022-04-13] MEDS: Insulin Glargine 30 UNITS/0.3 ML VIAL SC SCH ×2 (09:19→20:59)
[2022-04-13] MEDS ORDERED: Ketorolac Tromethamine 30 MG/ML VIAL IVP SCH (16:45)
[2022-04-13] MEDS: cefTRIAXone\\ROCEPHIN 1 GM in Sodium Chloride 0.9% 100 ML IVPB SCH (20:55)
[2022-04-13] MEDS: Enoxaparin Sodium 40 MG/0.4 ML SYRINGE SC SCH (20:57)
[2022-04-13] MEDS: Atorvastatin Calcium 10 MG TAB PO SCH (20:57)
[2022-04-13] MEDS: Metoprolol Tartrate 50 MG TAB PO SCH (20:59)
[2022-04-13] MEDS: Lithium Carbonate ER 450 mg Tablet PO SCH (21:01)
[2022-04-13] MEDS ORDERED: Gabapentin 300 MG CAP PO SCH (22:00)
[2022-04-13] MEDS: Ketorolac Tromethamine 30 MG/ML VIAL IVP SCH (23:25)
[2022-04-14] MEDS: HumaLOG 300 UNITS/3 ML VIAL SC PRN ×4 (00:24→16:57)
[2022-04-14] MEDS: Sodium Chloride 0.9% 1,000 ML IV SCH ×3 (00:25→16:53)
[2022-04-14] MEDS: Ketorolac Tromethamine 30 MG/ML VIAL IVP SCH ×3 (05:26→17:00)
[2022-04-14 05:28] LABS: #Eosinphils 0.2 thou/uL (0.0-0.7); #Lymphocytes 1.9 thou/uL (1.20-3.40); #Monocytes 0.3 thou/uL (0.11-0.59); %Basophils 0.8 % (0.0-1.0); %Eosinophils 3.4 % (0.0-10.0); %Lymphocytes 35.3 % (21.0-51.0); %Monocytes 5.3 % (0.0-10.0); %Neutrophils 55.2 % (42.0-75.0); Hemoglobin 12.7 g/dL (12.0-16.0); Mean Corpuscular HGB CONC 32.7 g/dL (32.0-36.0); Mean Corpuscular Hemoglobin 29.2 pg (27.0-31.0); Mean Corpuscular Volume 89.1 fL (78.0-98.0); Mean Platelet Volume 6.8 fL (7.4-10.4); Platelet Count 318 thou/uL (130-400); RBC Distribution Width 12.5 % (11.5-14.5); Red Blood Cell (RBC) Count 4.37 mill/uL (4.20-5.40); White Blood Cell (WBC) Count 5.4 thou/uL (4.8-10.8)
[2022-04-14 05:44] LABS: Anion Gap 11 mmol/L (10-20); BUN (Urea Nitrogen) 10 mg/dL (7.0-18.7); Calc. Creatinine Clearance 175 mL/min (70-130); Calcium 8.6 mg/dL (7.8-10.44); Carbon Dioxide 19 mmol/L (22-29); Chloride 108 mmol/L (98-107); Estimated GFR 91; Glucose 249 mg/dL (70-105); Magnesium 1.6 mg/dL (1.6-2.6); Potassium 3.3 mmol/L (3.5-5.1); Sodium 135 mmol/L (136-145)
[2022-04-14] MEDS: DULoxetine 60 MG CAP PO SCH (08:48)
[2022-04-14] MEDS: Lisinopril 5 MG TAB PO SCH (08:48)
[2022-04-14] MEDS: Gabapentin 300 MG CAP PO SCH ×3 (08:49→22:04)
[2022-04-14] MEDS: Metoprolol Tartrate 50 MG TAB PO SCH ×2 (08:49→22:07)
[2022-04-14] MEDS: Insulin Glargine 30 UNITS/0.3 ML VIAL SC SCH ×2 (08:49→22:08)
[2022-04-14] MEDS: cefTRIAXone\\ROCEPHIN 1 GM in Sodium Chloride 0.9% 100 ML IVPB SCH (22:02)
[2022-04-14] MEDS: Atorvastatin Calcium 10 MG TAB PO SCH (22:03)
[2022-04-14] MEDS: Enoxaparin Sodium 40 MG/0.4 ML SYRINGE SC SCH (22:03)
[2022-04-14] MEDS: Lithium Carbonate ER 450 mg Tablet PO SCH (22:07)
[2022-04-15] MEDS: Ketorolac Tromethamine 30 MG/ML VIAL IVP SCH ×3 (00:36→12:20)
[2022-04-15 04:56] LABS: Anion Gap 10 mmol/L (10-20); BUN (Urea Nitrogen) 8 mg/dL (7.0-18.7); Calc. Creatinine Clearance 189 mL/min (70-130); Calcium 8.7 mg/dL (7.8-10.44); Carbon Dioxide 21 mmol/L (22-29); Chloride 111 mmol/L (98-107); Estimated GFR 100; Glucose 152 mg/dL (70-105); Potassium 3.3 mmol/L (3.5-5.1); Sodium 139 mmol/L (136-145)
[2022-04-15] MEDS ORDERED: Insulin Glargine 30 UNITS/0.3 ML VIAL SC SCH (09:00)
[2022-04-15] MEDS ORDERED: Alogliptin 6.25 MG TAB PO SCH (09:00)
[2022-04-15] MEDS: DULoxetine 60 MG CAP PO SCH (09:40)
[2022-04-15] MEDS: Insulin Glargine 30 UNITS/0.3 ML VIAL SC SCH (09:41)
[2022-04-15] MEDS: Gabapentin 300 MG CAP PO SCH (09:41)
[2022-04-15] MEDS: Metoprolol Tartrate 50 MG TAB PO SCH (09:42)
[2022-04-15] MEDS: Lisinopril 5 MG TAB PO SCH (09:42)
[2022-04-15 12:14] VITALS: BP 132/93; TEMP 98.3
== END 2022-04-15 12:56 | disposition home or self-care (01) | DRG 638 ==
LOC: ERS 17:03 → 2NO 20:15 → OBSVTOIN 04-13 15:46
PROVIDERS: ADMIT Family Medicine; ATTEND Family Medicine
DX: E11.65 Type 2 diabetes mellitus with hyperglycemia (principal); E87.1 Hypo-osmolality and hyponatremia; N17.9 Acute kidney failure, unspecified; N30.00 Acute cystitis without hematuria; E86.0 Dehydration; Z20.822 Contact with and (suspected) exposure to COVID-19; I10 Essential (primary) hypertension; F31.9 Bipolar disorder, unspecified; E87.5 Hyperkalemia; Z88.8 Allergy status to other drugs, medicaments and biological substances; Z79.4 Long term (current) use of insulin; Z79.899 Other long term (current) drug therapy
CPT/HCPCS: 36415; 36416; 70450; 71045; 72125; 72128; 72131; 80048; 80061; 80076; 80178; 80306; 81001; 82010; 82550; 82805; 83036; 83690; 83735; 84100; 84443; 84484; 85025; 87040; 87086; 93005; 96361; 96374; 96375; G0378; J0696; J1650; J1815; J1885; J3490; J7050; U0003; U0005

== ENCOUNTER 2022-04-17 09:24 | Emergency (ER) | payer SELFPAY ==
[2022-04-17 10:57] LABS: #Basophils 0.1 thou/uL (0.0-0.2); #Eosinphils 0.3 thou/uL (0.0-0.7); #Lymphocytes 1.9 thou/uL (1.20-3.40); #Monocytes 0.4 thou/uL (0.11-0.59); #Neutrophils 3.4 thou/uL (1.40-6.50); %Basophils 0.8 % (0.0-1.0); %Eosinophils 4.6 % (0.0-10.0); %Lymphocytes 31.5 % (21.0-51.0); %Monocytes 5.8 % (0.0-10.0); %Neutrophils 57.2 % (42.0-75.0); Hemoglobin 12.3 g/dL (12.0-16.0); Mean Corpuscular HGB CONC 31.6 g/dL (32.0-36.0); Mean Corpuscular Hemoglobin 29.1 pg (27.0-31.0); Mean Corpuscular Volume 92.3 fL (78.0-98.0); Mean Platelet Volume 6.5 fL (7.4-10.4); Platelet Count 372 thou/uL (130-400); RBC Distribution Width 12.9 % (11.5-14.5); Red Blood Cell (RBC) Count 4.23 mill/uL (4.20-5.40)
[2022-04-17 11:13] LABS: ALT (SGPT) 29 U/L (8-55); AST (SGOT) 29 U/L (5-34); Albumin 3.2 g/dL (3.5-5.0); Alkaline Phosphatase 66 U/L (40-110); Anion Gap 10 mmol/L (10-20); BUN (Urea Nitrogen) 6 mg/dL (7.0-18.7); Bilirubin, Total 0.3 mg/dL (0.2-1.2); Calc. Creatinine Clearance 0 mL/min (70-130); Carbon Dioxide 23 mmol/L (22-29); Chloride 110 mmol/L (98-107); Estimated GFR 92; Globulin 1.8 g/dL (2.4-3.5); Glucose 194 mg/dL (70-105); Potassium 3.9 mmol/L (3.5-5.1); Sodium 139 mmol/L (136-145)
== END 2022-04-17 11:59 | disposition home or self-care (01) ==
LOC: ERS 09:24
DX: R22.0 Localized swelling, mass and lump, head (principal); I10 Essential (primary) hypertension; E11.9 Type 2 diabetes mellitus without complications; E78.00 Pure hypercholesterolemia, unspecified; Z79.899 Other long term (current) drug therapy; Z79.4 Long term (current) use of insulin
CPT/HCPCS: 36415; 36416; 80053; 85025; 99283

== ENCOUNTER 2022-04-26 19:45 | Emergency (ER) | payer OTHER ==
[2022-04-26] MEDS ORDERED: Ondansetron PF 4 MG/2 ML Vial ONE (20:15)
[2022-04-26] MEDS ORDERED: Pantoprazole 40 MG VIAL ONE (20:15)
[2022-04-26 20:36] LABS: #Eosinphils 0.3 thou/uL (0.0-0.7); #Lymphocytes 1.1 thou/uL (1.20-3.40); #Monocytes 0.8 thou/uL (0.11-0.59); %Basophils 0.1 % (0.0-1.0); %Eosinophils 2.5 % (0.0-10.0); %Lymphocytes 10.8 % (21.0-51.0); %Monocytes 8.2 % (0.0-10.0); %Neutrophils 78.5 % (42.0-75.0); Hemoglobin 14.3 g/dL (12.0-16.0); Mean Corpuscular HGB CONC 31.4 g/dL (32.0-36.0); Mean Corpuscular Hemoglobin 28.9 pg (27.0-31.0); Mean Corpuscular Volume 92.1 fL (78.0-98.0); Mean Platelet Volume 6.4 fL (7.4-10.4); Platelet Count 484 thou/uL (130-400); Red Blood Cell (RBC) Count 4.96 mill/uL (4.20-5.40); White Blood Cell (WBC) Count 10.1 thou/uL (4.8-10.8)
[2022-04-26] MEDS ORDERED: Metoclopramide HCl 10 MG/2 ML VIAL ONE (20:50)
[2022-04-26 21:01] LABS: ALT (SGPT) 26 U/L (8-55); AST (SGOT) 17 U/L (5-34); Albumin 4.1 g/dL (3.5-5.0); Alkaline Phosphatase 90 U/L (40-110); Anion Gap 14 mmol/L (10-20); BUN (Urea Nitrogen) 15 mg/dL (7.0-18.7); Bilirubin, Total 1.1 mg/dL (0.2-1.2); Calc. Creatinine Clearance 0 mL/min (70-130); Calcium 9.5 mg/dL (7.8-10.44); Carbon Dioxide 23 mmol/L (22-29); Chloride 106 mmol/L (98-107); Estimated GFR 51; Globulin 2.4 g/dL (2.4-3.5); Glucose 230 mg/dL (70-105); Potassium 4.2 mmol/L (3.5-5.1); Protein, Total 6.5 g/dL (6.0-8.3); Sodium 139 mmol/L (136-145)
[2022-04-26 22:30] LABS: Bilirubin Negative (Negative); Blood, Urine Negative (Negative); Clarity Clear (Clear); Glucose, Urine (Dipstick) 70 mg/dL (Negative); Ketone, Urine 10 mg/dL (Negative); Leukocyte Negative Leu/uL (Negative); Nitrite Negative (Negative); Protein, Urine (Dipstick) 20 mg/dL (Neg-Trace); Specific Gravity, Urine 1.039 (1.002-1.036); Urobilinogen Normal mg/dL (Less than 2)
== END 2022-04-27 00:58 | disposition home or self-care (01) ==
LOC: ERS 19:45
DX: R10.84 Generalized abdominal pain (principal); R11.2 Nausea with vomiting, unspecified; E11.9 Type 2 diabetes mellitus without complications; Z79.4 Long term (current) use of insulin
CPT/HCPCS: 36415; 36416; 51701; 71045; 74177; 80053; 81003; 83690; 84484; 85025; 93005; 96361; 96374; 96375; C9113; J1885; J2405; J2765; Q9967

== ENCOUNTER 2022-05-22 03:50 | Emergency (ER) | payer OTHER, SELFPAY | END 2022-05-22 05:05 | disposition home or self-care (01) | LOC: ERS 03:50 | DX: H10.9 Unspecified conjunctivitis (principal) | CPT/HCPCS: 99282 ==

== ENCOUNTER 2023-04-10 14:24 | Emergency (ER) | payer OTHER, SELFPAY | END 2023-04-10 18:44 | disposition home or self-care (01) | LOC: ERS 14:24 | DX: K04.7 Periapical abscess without sinus (principal); E78.5 Hyperlipidemia, unspecified; I10 Essential (primary) hypertension; E11.9 Type 2 diabetes mellitus without complications | CPT/HCPCS: 99283 ==

== ENCOUNTER 2024-08-07 00:47 | Emergency (ER) | payer SELFPAY ==
[2024-08-07] MEDS ORDERED: Ketorolac Tromethamine 30 MG (1 mL) VIAL ONE (01:33)
[2024-08-07] MEDS ORDERED: Orphenadrine Citrate 60 MG/2 ML VIAL ONE (01:33)
[2024-08-07] MEDS ORDERED: methylPREDNISolone Sod Succ/PF 125 MG/2 ML VIAL ONE (01:34)
[2024-08-07] MEDS ORDERED: Lidocaine 4% Patch ONE (01:34)
== END 2024-08-07 02:28 | disposition home or self-care (01) ==
LOC: ERS 00:47
DX: M54.42 Lumbago with sciatica, left side (principal); M54.41 Lumbago with sciatica, right side; E11.9 Type 2 diabetes mellitus without complications; I10 Essential (primary) hypertension
CPT/HCPCS: 96372; 99282; J1885; J2360; J2919